=== PATIENT | female | born 1980 | race Caucasian/White ===

== ENCOUNTER 2021-02-05 16:33 | Observation (INO) | payer BC ==
[2021-02-05] MEDS ORDERED: morphine SULFATE 4 MG/ML VIAL IVPUSH ONE (17:11)
[2021-02-05] MEDS ORDERED: DEXAMETHASONE SOD PHOSPHATE 4 MG/1 ML VIAL IVPUSH ONE (17:11)
[2021-02-05] MEDS ORDERED: diazePAM CARPU-JECT 10 MG/2 ML DISP.SYRIN IVPUSH ONE (17:11)
[2021-02-05] MEDS ORDERED: SODIUM CHLORIDE 1,000 ML IV STA (17:12)
[2021-02-05] MEDS ORDERED: DEXAMETHASONE SOD PHOSPHATE 10 MG/1 ML VIAL ONE (17:22)
[2021-02-05] MEDS ORDERED: diazePAM CARPU-JECT 10 MG/2 ML DISP.SYRIN ONE (17:29)
[2021-02-05] MEDS ORDERED: morphine SULFATE 4 MG/ML VIAL ONE ×3 (17:32→21:36)
[2021-02-05] MEDS ORDERED: KETOROLAC TROMETHAMINE 60 MG/2 ML VIAL IVPUSH ONE (18:36)
[2021-02-05] MEDS ORDERED: KETOROLAC TROMETHAMINE 30 MG/1 ML VIAL ONE (18:39)
[2021-02-05] MEDS ORDERED: morphine CARPU-JECT 4 MG/1 ML DISP.SYRIN IVPUSH ONE ×2 (19:11→21:28)
[2021-02-05 20:45] LABS: BASO % 0.3 % (0-2.0); EOS % 0.1 % (0-4.5); HEMATOCRIT 39.6 % (32.4-45.2); HEMOGLOBIN 13.4 GM/dL (10.7-15.3); LYMPH % 9.3 % (8-40); MCH 27.3 pg (25.7-33.7); MCHC 33.8 g/dl (32.0-36.0); MEAN CELL VOLUME 80.8 fl (80-96); MEAN PLT VOLUME 8.4 fl (7.5-11.1); MONO % 0.7 % (3.8-10.2); NEUT % 89.6 % (42.8-82.8); PLATELET COUNT 320 K/MM3 (134-434); RDW 16.6 % (11.6-15.6)
[2021-02-05 21:10] LABS: CALCIUM 8.6 mg/dL (8.5-10.1); CHLORIDE 107 mmol/L (98-107); SODIUM 136 mmol/L (136-145)
[2021-02-05 21:11] LABS: ALBUMIN 3.5 g/dl (3.4-5.0); ANION GAP 10 MMOL/L (8-16); BLOOD UREA NITROGEN 8.2 mg/dL (7-18); CO2 19 mmol/L (21-32); GLUCOSE,RANDOM 107 mg/dL (74-106)
[2021-02-05 21:14] LABS: CREATININE 0.9 mg/dL (0.55-1.3); SGOT/AST 12 U/L (15-37); SGPT/ALT 20 U/L (13-61)
[2021-02-05 21:16] LABS: BILIRUBIN,TOTAL 0.3 mg/dL (0.2-1); TOT PROT 7.8 g/dl (6.4-8.2)
[2021-02-05 21:17] LABS: ALK PHOS 83 U/L (45-117)
[2021-02-06] MEDS ORDERED: morphine SULFATE 4 MG/ML VIAL IVPUSH PRN (01:31)
[2021-02-06] MEDS ORDERED: LIDOCAINE 5% TOPICAL PATCH TP ONE (01:38)
[2021-02-06] MEDS: oxyCODONE HCL 10 MG SUSTAINED ACTING TABLET PO SCH ×2 (01:59→09:42)
[2021-02-06] MEDS: DOCUSATE SODIUM 100 MG CAPSULE (FP) PO SCH ×2 (01:59→10:08)
[2021-02-06 04:03] LABS: EPI CELLS 11 /uL (0-25.1); HYALINE CASTS 1 /uL (0-3.1); PH,URINE 5.5 (5.0-8.0); URINE APPEARANCE CLEAR; URINE BACTERIA 362 /uL (0-1359); URINE BILIRUBIN NEGATIVE (NEGATIVE); URINE COLOR YELLOW; URINE GLUCOSE (UA) NEGATIVE (NEGATIVE); URINE KETONE TRACE (NEGATIVE); URINE LEUK ESTERASE NEGATIVE (NEGATIVE); URINE NITRITE NEGATIVE (NEGATIVE); URINE PROTEIN TRACE (NEGATIVE); URINE RBC 118 /uL (0-23.9); URINE UROBILINOGEN 0.2 mg/dL (0.2-1.0); URINE WBC 15 /uL (0-25.8)
[2021-02-06 05:22] VITALS: BMI 44.0
[2021-02-06] MEDS: CYCLOBENZAPRINE HCL 5 MG TABLET PO SCH ×2 (07:14→07:15)
[2021-02-06] MEDS ORDERED: POLYETHYLENE GLYCOL 3350 119 GM BTL PO SCH (10:00)
[2021-02-06] MEDS ORDERED: predniSONE 20 MG TABLET (UD) PO SCH (10:00)
[2021-02-06] MEDS ORDERED: PANTOPRAZOLE 40 MG TABLET PO SCH (10:00)
[2021-02-06] MEDS ORDERED: ENOXAPARIN NA (PORCINE) 40 MG/0.4 ML DISP.SYRIN SQ SCH (10:00)
[2021-02-06] MEDS ORDERED: CYCLOBENZAPRINE HCL 5 MG TABLET PO SCH ×2 (10:00)
[2021-02-06] MEDS ORDERED: oxyCODONE HCL 5 MG TABLET PO ONE (11:40)
[2021-02-06] MEDS ORDERED: CYCLOBENZAPRINE HCL 5 MG TABLET PO ONE (13:00)
[2021-02-06] MEDS ORDERED: LIDOCAINE PATCH REMOVAL MC ONE (14:00)
[2021-02-06 14:35] VITALS: BP 139/73; PULSE 80; TEMP 97.9
== END 2021-02-06 18:40 | disposition home or self-care (01) ==
LOC: JER 16:33 → INTOOBSV 02-06 01:05 → UNDOADMOB 02-06 01:05 → JERBED 02-06 01:05 → J8W 02-06 04:33 → JERBED 02-06 07:39
PROVIDERS: ADMIT Internal Medicine; ATTEND Internal Medicine
PROC: 3E033GC Introduction of Other Therapeutic Substance into Peripheral Vein, Percutaneous Approach (ICD-10-PCS; principal; 2021-02-06)
PROC: 3E023GC Introduction of Other Therapeutic Substance into Muscle, Percutaneous Approach (ICD-10-PCS; 2021-02-06)
PROC: 3E033NZ Introduction of Analgesics, Hypnotics, Sedatives into Peripheral Vein, Percutaneous Approach (ICD-10-PCS; 2021-02-06)
PROC: 3E0337Z Introduction of Electrolytic and Water Balance Substance into Peripheral Vein, Percutaneous Approach (ICD-10-PCS; 2021-02-06)
DX: M51.26 Other intervertebral disc displacement, lumbar region (principal); E66.8 Other obesity; Z68.41 Body mass index [BMI] 40.0-44.9, adult; I10 Essential (primary) hypertension; F41.8 Other specified anxiety disorders; F17.210 Nicotine dependence, cigarettes, uncomplicated; Z88.8 Allergy status to other drugs, medicaments and biological substances
CPT/HCPCS: 36415; 80053; 81003; 82962; 84702; 85025; 87086; 93005; 93010; 96361; 96372; 96374; 96375; 96376; 99285-25; C9803; G0378; U0003; U0005

== ENCOUNTER 2021-06-04 16:45 | Emergency (ER) | payer BC ==
[2021-06-04 17:03] VITALS: BP 145/88; PULSE 114; TEMP 98.8; BMI 42.0
[2021-06-04] MEDS ORDERED: KETOROLAC TROMETHAMINE 30 MG/1 ML VIAL IM ONE (18:08)
[2021-06-04] MEDS ORDERED: KETOROLAC TROMETHAMINE 30 MG/1 ML VIAL ONE (18:13)
== END 2021-06-04 19:54 | disposition home or self-care (01) ==
LOC: JERFT 16:45 → JER 16:45 → JERFT 19:54
PROC: 3E023GC Introduction of Other Therapeutic Substance into Muscle, Percutaneous Approach (ICD-10-PCS; principal; 2021-06-04)
DX: S82.832A Other fracture of upper and lower end of left fibula, initial encounter for closed fracture (principal); W10.8XXA Fall (on) (from) other stairs and steps, initial encounter
CPT/HCPCS: 73610-TC-LT-FY; 73630-TC-LT; 99284-25